=== PATIENT | male | born 1960 | race Caucasian/White ===

== ENCOUNTER 2023-10-28 16:43 | Emergency (ER) | payer OTHER ==
[~2023-10-28] VITALS: Ht 170.2 cm; Wt 65.8 kg
[2023-10-28 16:50] VITALS: BP 169/97
== END 2023-10-28 17:04 | disposition home or self-care (01) ==
LOC: ER 16:43
DX: S61.451D Open bite of right hand, subsequent encounter (principal); W55.01XD Bitten by cat, subsequent encounter
CPT/HCPCS: 99282

== ENCOUNTER → 2025-03-16 | Outpatient (CLI) | payer OTHER ==
[2025-03-16 20:18] LABS: Alanine Aminotransfer (ALT/SGP 24.0 U/L (12-78); Albumin, Blood 4.2 g/dL (3.4-5.0); Albumin/Globulin Ratio 1.4 (0.8-1.8); Anion Gap 6.0 mmol/L (3-11); Aspartate Aminotrans (AST/SGOT 21.0 U/L (12-37); Bilirubin, Total 0.6 mg/dL (0.1-1.0); Blood Urea Nitrogen 9.0 mg/dL (8-24); CO2, Blood 32.0 mmol/L (21-32); Calcium, Blood 9.4 mg/dL (8.5-10.1); Chloride, Blood 102.0 mmol/L (98-108); Creatinine, Blood 0.79 mg/dL (0.60-1.20); Globulin, Blood 3.1 g/dL (2.2-4.0); Glucose, Blood 98.0 mg/dL (70-99); Potassium, Blood 3.9 mmol/L (3.5-5.5); Sodium, Blood 136.0 mmol/L (136-145); Total Protein, Blood 7.3 g/dL (6.4-8.2)
== END ==
LOC: LAB 17:29 → LAB SHORT 17:29
DX: E78.5 Hyperlipidemia, unspecified (principal)
CPT/HCPCS: 80053